=== PATIENT | female | born 1950 | race Caucasian/White ===

== ENCOUNTER 2016-05-02 10:56 | Inpatient (IN) | payer SELFPAY ==
[~2016-05-02] VITALS: Ht 165.1 cm; Wt 77.6 kg
[2016-05-02] MEDS ORDERED: ACETAMINOPHEN 325 MG TAB PO ONE (11:15)
[2016-05-02] MEDS ORDERED: ALBUTEROL SULF 2.5 MG/0.5ML(0.5%) NEB SOLN HHN STA (11:24)
[2016-05-02] MEDS ORDERED: methylPREDNISolone SOD SUCC 125 MG/2 ML VL IV ONE (11:30)
[2016-05-02] MEDS ORDERED: SODIUM CHLORIDE 0.9% 1,000 ML IV ONE (11:30)
[2016-05-02] MEDS ORDERED: IPRATROPIUM BROM 0.5 MG/2.5ML INH SOL NEB ONE (11:30)
[2016-05-02 11:37] LABS: Urine RBC None Seen /hpf (0 - 4)
[2016-05-02 12:02] LABS: Urine Bilirubin Negative (Negative); Urine Blood Negative /uL (Negative); Urine Color Yellow (Yellow); Urine Glucose Normal (Normal); Urine Nitrite Negative (Negative); Urine Squamous Epithelial Cell FEW /hpf (<5); Urine Urobilinogen Normal (Negative); Urine pH 5.5 (5.0-8.0)
[2016-05-02 12:03] LABS: Urine Ketone 1+ (Negative)
[2016-05-02 12:06] LABS: Basophils # (auto) 0 uL; Basophils % (auto) 0.8 % (0.0-2.0); Eosinophils # (auto) 0.1 uL; Eosinophils % (auto) 1.2 % (0.0-7.0); Hematocrit 47.2 % (36.0-46.0); Hemoglobin 15.6 g/dL (12.2-16.2); Lymphocytes # (auto) 0.9 uL; Mean Corpuscular Hemoglobin 28.8 pg (28.0-32.0); Mean Corpuscular Hgb Conc. 33.2 g/dL (32.0-36.0); Mean Corpuscular Volume 86.8 fL (80.0-100.0); Mean Platelet Volume 10.1 fL (7.4-10.4); Monocytes # (auto) 0.6 uL; Monocytes % (auto) 9.5 % (0.0-12.0); Neutrophils # (auto) 4.3 uL; Neutrophils % (auto) 72.5 % (37.0-80.0); Platelet Count (auto) 226 10^3/uL (140-450); White Blood Cell 5.9 10^3/uL (4.4-10.8)
[2016-05-02 12:31] LABS: Albumin 4.6 g/dL (3.4-5.0); BUN/Creatinine Ratio 13.8; Bilirubin, Total 0.6 mg/dL (0.2-1.0); Calcium 9.3 mg/dL (8.5-10.1); Potassium 3.3 mmol/L (3.5-5.1); Total Protein 8.4 g/dL (6.4-8.2)
[2016-05-02] MEDS ORDERED: MORPHINE SULFATE 4 MG/ML SYRG IV ONE (12:45)
[2016-05-02] MEDS ORDERED: POTASSIUM CHL 20 Meq TABLET PO ONE (13:00)
[2016-05-02] MEDS ORDERED: cefTRIAXone 1GM/50ML D5W 50 ML IV ONE (17:45)
[2016-05-02] MEDS ORDERED: ONDANSETRON ODT 4 MG TAB PO PRN (17:45)
[2016-05-02] MEDS ORDERED: ACETAMINOPHEN 325 MG RECT SUPP PR PRN (17:45)
[2016-05-02] MEDS ORDERED: MORPHINE SULF INJ 2 MG/ML SYRINGE 1ML IV PRN (17:45)
[2016-05-02] MEDS: SODIUM CHLORIDE 0.9% 1,000 ML IV SCH (18:10)
[2016-05-02] MEDS ORDERED: AZITHROMYCIN 500MG/D5W 250ML 250 ML IV ONE (18:30)
[2016-05-02 19:50] VITALS: BP 121/79
[2016-05-02] MEDS: HYDROcodone-ACET 5/325MG TAB PO PRN (20:46)
[2016-05-02 21:00] VITALS: BP 121/79
[2016-05-02] MEDS: methylPREDNISolone SOD SUCC 40 MG/ML VL IV SCH (21:12)
[2016-05-02 22:00] VITALS: BP 128/69
[2016-05-02] MEDS ORDERED: AMLO5TAB2 PO (22:43)
[2016-05-03] MEDS: SODIUM CHLORIDE 0.9% 1,000 ML IV SCH ×2 (03:45→13:57)
[2016-05-03] MEDS: HYDROcodone-ACET 5/325MG TAB PO PRN ×3 (04:30→21:50)
[2016-05-03 05:00] VITALS: BP 138/73
[2016-05-03 05:20] LABS: Basophils # (auto) 0 uL; Basophils % (auto) 0.8 % (0.0-2.0); Eosinophils # (auto) 0 uL; Eosinophils % (auto) 0.5 % (0.0-7.0); Hematocrit 41.6 % (36.0-46.0); Hemoglobin 13.6 g/dL (12.2-16.2); Lymphocytes # (auto) 0.8 uL; Lymphocytes % (auto) 14.5 % (10.0-50.0); Mean Corpuscular Hemoglobin 29.2 pg (28.0-32.0); Mean Corpuscular Hgb Conc. 32.7 g/dL (32.0-36.0); Mean Corpuscular Volume 89.1 fL (80.0-100.0); Mean Platelet Volume 9.3 fL (7.4-10.4); Monocytes # (auto) 0.2 uL; Monocytes % (auto) 3.9 % (0.0-12.0); Neutrophils # (auto) 4.4 uL; Neutrophils % (auto) 80.3 % (37.0-80.0); Platelet Count (auto) 204 10^3/uL (140-450); White Blood Cell 5.4 10^3/uL (4.4-10.8)
[2016-05-03 05:36] LABS: Albumin 3.3 g/dL (3.4-5.0); BUN/Creatinine Ratio 16.5; Calcium 8.2 mg/dL (8.5-10.1); Potassium 3.3 mmol/L (3.5-5.1)
[2016-05-03 05:39] LABS: Bilirubin, Total 0.3 mg/dL (0.2-1.0); Total Protein 6.9 g/dL (6.4-8.2)
[2016-05-03] MEDS: IPRATROPIUM BROM 0.5 MG/2.5ML INH SOL NEB SCH ×4 (06:35→18:49)
[2016-05-03] MEDS: ALBUTEROL SULF 2.5 MG/0.5ML(0.5%) NEB SOLN NEB SCH ×4 (06:36→18:49)
[2016-05-03] MEDS: cefTRIAXone 1GM/50ML D5W 50 ML IV SCH (08:37)
[2016-05-03] MEDS: methylPREDNISolone SOD SUCC 40 MG/ML VL IV SCH ×2 (08:37→21:50)
[2016-05-03 08:58] VITALS: BP 122/71
[2016-05-03] MEDS: AZITHROMYCIN 500MG/D5W 250ML 250 ML IV SCH (10:27)
[2016-05-03 12:54] VITALS: BP 134/85
[2016-05-03] MEDS ORDERED: POTASSIUM CHL 20 Meq TABLET PO ONE (13:45)
[2016-05-03 16:37] VITALS: BP 125/78
[2016-05-03 16:38] VITALS: BP 134/85
[2016-05-03 21:19] VITALS: BP 141/79
[2016-05-04 04:59] VITALS: BP 137/84
[2016-05-04 05:18] LABS: Basophils # (auto) 0 uL; Eosinophils # (auto) 0 uL; Hematocrit 42.5 % (36.0-46.0); Hemoglobin 13.9 g/dL (12.2-16.2); Lymphocytes # (auto) 0.8 uL; Lymphocytes % (auto) 7.2 % (10.0-50.0); Mean Corpuscular Hgb Conc. 32.7 g/dL (32.0-36.0); Mean Corpuscular Volume 88.6 fL (80.0-100.0); Mean Platelet Volume 9.6 fL (7.4-10.4); Monocytes # (auto) 0.4 uL; Monocytes % (auto) 3.1 % (0.0-12.0); Neutrophils # (auto) 10.3 uL; Neutrophils % (auto) 89.7 % (37.0-80.0); Platelet Count (auto) 237 10^3/uL (140-450); Red Cell Distribution Width 13.4 % (11.6-16.0); White Blood Cell 11.5 10^3/uL (4.4-10.8)
[2016-05-04 05:45] LABS: BUN/Creatinine Ratio 28.2; Calcium 8.6 mg/dL (8.5-10.1)
[2016-05-04] MEDS ORDERED: PROMETHAZINE W/CODEINE 5 ML ORAL SYRUP PO PRN (06:15)
[2016-05-04] MEDS: IPRATROPIUM BROM 0.5 MG/2.5ML INH SOL NEB SCH ×3 (06:23→14:15)
[2016-05-04] MEDS: ALBUTEROL SULF 2.5 MG/0.5ML(0.5%) NEB SOLN NEB SCH ×3 (06:24→14:15)
[2016-05-04] MEDS: SODIUM CHLORIDE 0.9% 1,000 ML IV SCH (06:33)
[2016-05-04 09:00] VITALS: BP 119/71
[2016-05-04] MEDS: HYDROcodone-ACET 5/325MG TAB PO PRN (09:29)
[2016-05-04] MEDS: methylPREDNISolone SOD SUCC 40 MG/ML VL IV SCH (09:29)
[2016-05-04] MEDS: cefTRIAXone 1GM/50ML D5W 50 ML IV SCH (09:30)
[2016-05-04] MEDS: AZITHROMYCIN 500MG/D5W 250ML 250 ML IV SCH (10:22)
[2016-05-04 13:00] VITALS: BP 118/69
[2016-05-04 14:11] VITALS: BP 118/69
== END 2016-05-04 15:19 | disposition home or self-care (01) | DRG 190 ==
LOC: ER 10:56 → OVERFLOW 10:57 → EAST 19:18
PROVIDERS: ADMIT Internal Medicine; ATTEND Internal Medicine
DX: J44.0 Chronic obstructive pulmonary disease with (acute) lower respiratory infection (principal); J18.9 Pneumonia, unspecified organism; J44.1 Chronic obstructive pulmonary disease with (acute) exacerbation; E86.0 Dehydration; I10 Essential (primary) hypertension; K76.0 Fatty (change of) liver, not elsewhere classified; E87.6 Hypokalemia; R09.02 Hypoxemia; Z87.891 Personal history of nicotine dependence; Z98.51 Tubal ligation status
CPT/HCPCS: 36415; 71010; 71020; 76705; 80048; 80053; 81001; 83605; 84484; 85025; 87040; 87077; 87186; 87400; 93005; 94640; 94761; 96365; 96375; J0696